=== PATIENT | female | born 1980 | race African-American/Black ===

== ENCOUNTER 2017-10-10 13:23 | Emergency (ER) | payer OTHER ==
[~2017-10-10] VITALS: Ht 162.6 cm; Wt 108.7 kg
[~2017-10-10 13:23] MED LIST: ASPIRIN E.C.81 M1 PO; Feosol PO; LABETALOL HCL200 MG PO; LAMICTAL100 MG PO; MICROZIDE12.5 MG PO; Motrin PO; NORMODYNE,TRAN200 MG PO; OXYIR5 MG PO; PAXIL20 MG PO; Prilosec PO; Proventil,Ventolin H IH; TOPAMAX25 MG PO; ZOFRAN4 MG PO
[2017-10-10] MEDS ORDERED: HYDROCHLOROTH12.5 M3 PO (16:17)
[2017-10-10] MEDS ORDERED: PRED FORTE100 DROP/5 RIGHT EYE (16:20)
[2017-10-10] MEDS ORDERED: CYCLOGYL 140 DROP/2 RIGHT EYE (16:20)
[2017-10-10 17:06] VITALS: BP 153/110
== END 2017-10-10 17:08 | disposition home or self-care (01) ==
LOC: EME 13:23
DX: I10 Essential (primary) hypertension (principal); Z91.14 Patient's other noncompliance with medication regimen; J45.909 Unspecified asthma, uncomplicated; F32.9 Major depressive disorder, single episode, unspecified
CPT/HCPCS: 99281; 99284